=== PATIENT | male | born 1975 | race Asian ===

== ENCOUNTER 2023-11-13 09:34 | Emergency (ER) | payer MEDICAID ==
[~2023-11-13] VITALS: Ht 175.3 cm; Wt 84.1 kg
[2023-11-13 13:25] VITALS: BP 114/84; PULSE 56; RESP 18; TEMP 98; O2SAT 100
== END 2023-11-13 13:27 | disposition home or self-care (01) ==
LOC: ER 09:35
DX: R56.9 Unspecified convulsions (principal); Z86.73 Personal history of transient ischemic attack (TIA), and cerebral infarction without residual deficits
CPT/HCPCS: 99281